=== PATIENT | male | born 1965 | race African-American/Black ===

== ENCOUNTER 2017-04-21 12:15 | Inpatient (IN) | payer OTHER ==
[~2017-04-21] VITALS: Ht 162.6 cm; Wt 53.5 kg
[2017-04-21] MEDS ORDERED: LORazepam 2 MG/ML VIAL IVP ONE (12:35)
[2017-04-21] MEDS ORDERED: NACL 0.9% 1,000 ML IV ONE ×2 (12:35→14:05)
[2017-04-21] MEDS ORDERED: INSULIN HUMAN REGULAR 100 UNITS/ML 10 ML VIAL IVP ONE (12:35)
[2017-04-21] MEDS ORDERED: ONDANSETRON 4 MG/2 ML VIAL IVP ONE (12:35)
[2017-04-21] MEDS ORDERED: LORazepam 2 MG/ML VIAL ONE (12:40)
[2017-04-21] MEDS ORDERED: ONDANSETRON 4 MG/2 ML VIAL ONE (12:42)
[2017-04-21] MEDS ORDERED: NALOXONE 0.4 MG/ML VIAL IVP ONE (12:50)
[2017-04-21] MEDS ORDERED: NALOXONE 0.4 MG/ML VIAL ONE ×2 (12:52→12:56)
[2017-04-21 12:53] VITALS: BP 139/84
[2017-04-21 12:54] LABS: BASOPHILS # (AUTO) 0.2 K/uL (0.00-0.22); BASOPHILS % (AUTO) 2.3 % (0.0-2.0); EOSINOPHILS # (AUTO) 0.1 K/uL (0-0.4); EOSINOPHILS % (AUTO) 1.8 % (0.0-4.0); HEMATOCRIT 36.7 % (36-52); HEMOGLOBIN 11.8 g/dL (12.0-18.0); LYMPHOCYTES # (AUTO) 2.5 K/uL (2.0-11.5); LYMPHOCYTES % (AUTO) 30.4 % (20.5-51.1); MEAN CORPUSCULAR HEMOGLOBIN 29 pg (27-31); MEAN CORPUSCULAR HGB CONC 32 g/dL (33-37); MEAN CORPUSCULAR VOLUME 91 fL (80-94); MONOCYTES # (AUTO) 0.5 K/uL (0.8-1.0); MONOCYTES % (AUTO) 6.6 % (1.7-9.3); NEUTROPHILS # (AUTO) 4.9 K/uL (1.8-7.7); NEUTROPHILS % (AUTO) 58.9 % (42.2-75.2); PLATELET COUNT (AUTO) 205 K/uL (140-450); RED BLOOD CELL COUNT(AUTO) 4.04 MIL/uL (4.20-6.10); RED CELL DISTRIBUTION WIDTH 13.1 % (11.6-13.7); WHITE BLOOD COUNT (AUTO) 8.2 K/uL (4.8-10.8)
[2017-04-21] MEDS ORDERED: VANCOMYCIN 1,000 MG VIAL ONE (14:04)
[2017-04-21] MEDS ORDERED: PIPERACILLIN/TAZOBACTAM 4.5 GM in DEXTROSE 5% 100 ML IV ONE (14:05)
[2017-04-21 14:11] LABS: CHLORIDE 103 mmol/L (98-107); POTASSIUM 3.8 mmol/L (3.5-5.1); SODIUM SERUM 140 mmol/L (136-145)
[2017-04-21 14:12] LABS: ANION GAP 12.7 (8-16); CARBON DIOXIDE 28.1 mmol/L (21-32); GLUCOSE 472 mg/dL (74-106)
[2017-04-21 14:13] LABS: ASPARTATE AMINOTRANSFERASE 123 U/L (15-37); GFR ARICAN-AMERICAN 101 mL/min (>90); TOTAL BILIRUBIN 0.3 mg/dL (0.0-1.0); UREA NITROGEN, BLOOD 10 mg/dL (7-18)
[2017-04-21 14:14] LABS: ACETAMINOPHEN < 0.5 ug/ml (10-30); ALBUMIN 3.8 g/dL (3.4-5.0); SALICYLATE 5.2 mg/dL (2.8-20.0)
[2017-04-21] MEDS: VANCOMYCIN 1,000 MG in DEXTROSE 5% 250 ML IV ONE ×2 (14:15→15:56)
[2017-04-21 14:24] LABS: APPEARANCE,URINE CLEAR (CLEAR); BILIRUBIN,URINE NEGATIVE (NEGATIVE); BLOOD, URINE TRACE-L (NEGATIVE); COLOR,URINE STRAW (YELLOW); LEUKOCYTE ESTERASE ,URINE NEGATIVE (NEGATIVE); NITRITE, URINE NEGATIVE (NEGATIVE); UGLUCOSE 3+ (NEGATIVE)
[2017-04-21 14:35] LABS: RBC,URINE 0-3 /HPF (0-5); WBC,URINE 0-3 /HPF (0-5)
[2017-04-21 15:03] LABS: BARBITURATE, URINE NEG. ng/ml (NEG <=200); BENZODIAZEPINE, URINE NEG. ng/mL (NEG <=200); CANNABINOID, URINE NEG. ng/mL (NEG <=50); COCAINE, URINE NEG. ng/mL (NEG <=300); OPIATE, URINE NEG. ng/mL (NEG <=2000); PHENCYCLIDINE SCREEN,URINE NEG. ng/mL (NEG <=25)
[2017-04-21] MEDS ORDERED: ACETAMINOPHEN 650 MG SUPP RC ONE (15:11)
[2017-04-21] MEDS ORDERED: SODIUM PHOSPHATE 118 ML ENEM RC PRN (15:55)
[2017-04-21] MEDS ORDERED: NACL 0.9% 1,000 ML IV SCH (15:55)
[2017-04-21] MEDS ORDERED: POTASSIUM CHLORIDE 40 MEQ, LIDOCAINE 1% 25 MG in NACL 0.9% 250 ML IV PRN (15:55)
[2017-04-21] MEDS ORDERED: HYDROcodone/APAP 5/325 MG 1 TAB TAB PO PRN (15:55)
[2017-04-21] MEDS ORDERED: ALUMINUM HYD/MAG/SIMETHICONE 30 ML UDC PO PRN (15:55)
[2017-04-21] MEDS ORDERED: diphenhydrAMINE 50 MG/ML VIAL IVP PRN (15:55)
[2017-04-21] MEDS ORDERED: BISACODYL 10 MG SUPP RC PRN (15:55)
[2017-04-21] MEDS ORDERED: ALBUTEROL 0.083% 2.5 MG/3 ML NEBU INH PRN (15:55)
[2017-04-21] MEDS ORDERED: MAG SULF 2000 MG/WATER PREMIX 50 ML IV PRN (15:55)
[2017-04-21] MEDS ORDERED: LORazepam 2 MG/ML VIAL IVP PRN (15:55)
[2017-04-21] MEDS ORDERED: cloNIDine 0.1 MG TAB PO PRN (15:55)
[2017-04-21] MEDS ORDERED: guaiFENesin DM 200/20 MG-10 ML 10 ML UDC PO PRN (15:55)
[2017-04-21] MEDS ORDERED: ACETAMINOPHEN 325 MG TAB PO PRN (15:55)
[2017-04-21] MEDS ORDERED: DOCUSATE SODIUM 250 MG GELCAP PO PRN (15:55)
[2017-04-21] MEDS ORDERED: MAGNESIUM OXIDE 400 MG TAB PO PRN (15:55)
[2017-04-21] MEDS ORDERED: ONDANSETRON 4 MG/2 ML VIAL IVP PRN (15:55)
[2017-04-21] MEDS ORDERED: POTASSIUM CHLORIDE 10 MEQ TABER PO PRN (15:55)
[2017-04-21] MEDS ORDERED: IPRATROPIUM 0.02% 0.5 MG/2.5 ML NEBU INH PRN (15:55)
[2017-04-21] MEDS ORDERED: ACETAMINOPHEN 650 MG SUPP RC PRN (15:55)
[2017-04-21] MEDS: BLOOD GLUCOSE MONITORING 1 DEV DEV FS SCH ×2 (17:06→21:34)
[2017-04-21] MEDS: INSULIN LISPRO SLIDING SCALE 100 UNITS/ML VIAL SUBQ PRN (17:13)
[2017-04-21] MEDS: LORazepam 2 MG/ML VIAL IVP PRN (17:14)
[2017-04-21 18:00] VITALS: BP 140/75
[2017-04-21 20:00] VITALS: BP 133/52
[2017-04-21] MEDS: DEXTROSE 50% 50 ML SYR IVP PRN (21:38)
[2017-04-21] MEDS ORDERED: levETIRAcetam 100 MG/ML VIAL IV ONE (21:48)
[2017-04-21] MEDS: levETIRAcetam 500 MG in NACL 0.9% 100 ML IV SCH (21:51)
[2017-04-21] MEDS: DEXT 5% /NACL 0.9% 1,000 ML IV SCH ×2 (21:53→21:56)
[2017-04-21 22:00] VITALS: BP 134/62
[2017-04-22] VITALS (10 sets, daily range): BP systolic 108–133; BP diastolic 63–81
[2017-04-22 06:13] LABS: ANION GAP 13.1 (8-16); CARBON DIOXIDE 27.5 mmol/L (21-32); CREATININE 0.8 mg/dL (0.7-1.3); POTASSIUM 3.6 mmol/L (3.5-5.1)
[2017-04-22] MEDS: BLOOD GLUCOSE MONITORING 1 DEV DEV FS SCH ×4 (06:19→20:59)
[2017-04-22] MEDS: INSULIN LISPRO SLIDING SCALE 100 UNITS/ML VIAL SUBQ PRN ×3 (06:24→21:35)
[2017-04-22 07:18] LABS: HEMOGLOBIN 11.4 g/dL (12.0-18.0); MEAN CORPUSCULAR HEMOGLOBIN 30 pg (27-31); MEAN CORPUSCULAR HGB CONC 33 g/dL (33-37); MEAN CORPUSCULAR VOLUME 91 fL (80-94); PLATELET COUNT (AUTO) 140 K/uL (140-450); RED BLOOD CELL COUNT(AUTO) 3.84 MIL/uL (4.20-6.10); RED CELL DISTRIBUTION WIDTH 13.1 % (11.6-13.7); WHITE BLOOD COUNT (AUTO) 9.4 K/uL (4.8-10.8)
[2017-04-22 07:22] LABS: LYMPHOCYTES % (MANUAL) 42 % (20-46); MONOCYTES % (MANUAL) 4 % (5-12)
[2017-04-22] MEDS: DEXT 5% /NACL 0.9% 1,000 ML IV SCH ×2 (08:14→17:40)
[2017-04-22] MEDS: THIAMINE 100 MG TAB PO SCH (08:14)
[2017-04-22] MEDS: ENOXAPARIN 40 MG/0.4 ML SYR SUBQ SCH (08:15)
[2017-04-22] MEDS: HYDROcodone/APAP 5/325 MG 1 TAB TAB PO PRN ×3 (08:15→20:50)
[2017-04-22] MEDS: levETIRAcetam 500 MG in NACL 0.9% 100 ML IV SCH ×2 (09:02→20:49)
[2017-04-22] MEDS: MORPHINE SULFATE 2 MG/ML SYR IVP PRN (14:48)
[2017-04-22] MEDS: LORazepam 2 MG/ML VIAL IVP PRN (21:48)
[2017-04-23] VITALS: BP 118/71
[2017-04-23] MEDS: DEXTROSE 50% 50 ML SYR IVP PRN (00:01)
[2017-04-23 04:00] VITALS: BP 112/70
[2017-04-23] MEDS: HYDROcodone/APAP 5/325 MG 1 TAB TAB PO PRN ×4 (04:38→20:28)
[2017-04-23] MEDS: BLOOD GLUCOSE MONITORING 1 DEV DEV FS SCH ×4 (06:43→20:15)
[2017-04-23 08:00] VITALS: BP 113/67
[2017-04-23] MEDS: THIAMINE 100 MG TAB PO SCH (09:18)
[2017-04-23] MEDS: levETIRAcetam 500 MG in NACL 0.9% 100 ML IV SCH ×2 (09:18→20:29)
[2017-04-23] MEDS: ENOXAPARIN 40 MG/0.4 ML SYR SUBQ SCH (09:19)
[2017-04-23] MEDS: INSULIN LISPRO SLIDING SCALE 100 UNITS/ML VIAL SUBQ PRN ×3 (11:41→20:54)
[2017-04-23 12:00] VITALS: BP 124/79
[2017-04-23] MEDS ORDERED: INSULIN DETEMIR 100 UNITS/ML 10 ML VIAL SUBQ SCH (13:09)
[2017-04-23 16:00] VITALS: BP 140/76
[2017-04-23] MEDS ORDERED: KEP500 PO (16:07)
[2017-04-23] MEDS ORDERED: INSU100S22 SUBQ (16:09)
[2017-04-23 20:00] VITALS: BP 121/74
[2017-04-24] VITALS: BP 127/76
[2017-04-24 04:00] VITALS: BP 127/81
[2017-04-24] MEDS: HYDROcodone/APAP 5/325 MG 1 TAB TAB PO PRN ×3 (05:42→17:45)
[2017-04-24] MEDS: BLOOD GLUCOSE MONITORING 1 DEV DEV FS SCH ×4 (07:01→21:56)
[2017-04-24] MEDS: INSULIN LISPRO SLIDING SCALE 100 UNITS/ML VIAL SUBQ PRN ×4 (07:12→22:20)
[2017-04-24 08:00] VITALS: BP 125/78
[2017-04-24] MEDS: THIAMINE 100 MG TAB PO SCH (08:29)
[2017-04-24] MEDS: levETIRAcetam 500 MG in NACL 0.9% 100 ML IV SCH (08:32)
[2017-04-24] MEDS: ENOXAPARIN 40 MG/0.4 ML SYR SUBQ SCH (08:39)
[2017-04-24 12:00] VITALS: BP 122/70
[2017-04-24 16:00] VITALS: BP 119/72
[2017-04-24 20:00] VITALS: BP 135/72
[2017-04-24] MEDS ORDERED: INSULIN DETEMIR 100 UNITS/ML 10 ML VIAL SUBQ SCH ×2 (21:00)
[2017-04-24] MEDS: levETIRAcetam 500 MG TAB PO SCH (21:53)
[2017-04-25] VITALS: BP 136/79
[2017-04-25] MEDS: MORPHINE SULFATE 2 MG/ML SYR IVP PRN ×2 (00:42→09:36)
[2017-04-25 04:00] VITALS: BP 120/53
[2017-04-25] MEDS: BLOOD GLUCOSE MONITORING 1 DEV DEV FS SCH ×2 (06:39→12:01)
[2017-04-25 08:00] VITALS: BP 138/74
[2017-04-25] MEDS: ENOXAPARIN 40 MG/0.4 ML SYR SUBQ SCH (09:31)
[2017-04-25] MEDS: THIAMINE 100 MG TAB PO SCH (09:31)
[2017-04-25] MEDS: levETIRAcetam 500 MG TAB PO SCH (09:31)
[2017-04-25 12:00] VITALS: BP 134/78
[2017-04-25] MEDS: INSULIN LISPRO SLIDING SCALE 100 UNITS/ML VIAL SUBQ PRN (12:04)
[2017-04-25] MEDS ORDERED: INSULIN DETEMIR 100 UNITS/ML 10 ML VIAL SUBQ SCH (21:00)
== END 2017-04-25 14:05 | DRG 100 ==
LOC: MED 12:15 → MIC 15:25 → MTU 04-22 14:42
PROVIDERS: ADMIT Internal Medicine Pulmonary Disease; ATTEND Internal Medicine Pulmonary Disease
DX: R56.9 Unspecified convulsions (principal); E43 Unspecified severe protein-calorie malnutrition; G93.40 Encephalopathy, unspecified; F03.90 Unspecified dementia, unspecified severity, without behavioral disturbance, psychotic disturbance, mood disturbance, and anxiety; R50.9 Fever, unspecified; F10.10 Alcohol abuse, uncomplicated; R53.81 Other malaise; Y90.9 Presence of alcohol in blood, level not specified; E11.65 Type 2 diabetes mellitus with hyperglycemia; Z68.20 Body mass index [BMI] 20.0-20.9, adult
CPT/HCPCS: 36415; 70450; 71010; 80048; 80053; 80305; 81001; 82948; 83605; 84484; 85025; 86592; 87040; 87081; 93005; 95816; 96361; 96365; 96375; 97116; 97530; 99291; G0480; G0482; J1650; J1815; J1953; J2060; J2270; J2310; J2405; J2543; J3370; J7030; J7042; J7060; J7613; J7644; Q0092